=== PATIENT | female | born 1995 | race Caucasian/White ===

== ENCOUNTER 2016-04-04 22:26 | Emergency (ER) | payer OTHER ==
[2016-04-04 22:38] VITALS: BP 130/68; PULSE 86; TEMP 98.2; BMI 31.8
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
[2016-04-04 23:23] LABS: MCH 26.4 pg (25.7-33.7); MCHC 32.6 g/dl (32.0-36.0); MEAN CELL VOLUME 81.2 fl (80-96); MEAN PLT VOLUME 7.5 fl (7.5-11.1); PLATELET COUNT 279 K/MM3 (134-434); RDW 14.5 % (11.6-15.6)
[2016-04-05 00:35] LABS: URINE APPEARANCE CLEAR; URINE BILIRUBIN NEGATIVE (NEGATIVE); URINE BLOOD NEGATIVE (NEGATIVE); URINE COLOR STRAW; URINE GLUCOSE (UA) NEGATIVE (NEGATIVE); URINE KETONE NEGATIVE (NEGATIVE); URINE LEUK ESTERASE NEGATIVE (NEGATIVE); URINE NITRITE NEGATIVE (NEGATIVE); URINE PROTEIN NEGATIVE (NEGATIVE); URINE UROBILINOGEN NEGATIVE E.U./dl (0.2-1.0)
== END 2016-04-05 01:43 | disposition home or self-care (01) ==
LOC: JER 22:26
DX: O26.891 Other specified pregnancy related conditions, first trimester (principal); R10.84 Generalized abdominal pain; Y04.2XXA Assault by strike against or bumped into by another person, initial encounter; Y93.89 Activity, other specified; Y92.018 Other place in single-family (private) house as the place of occurrence of the external cause; Y07.411 Sister, perpetrator of maltreatment and neglect; Z3A.13 13 weeks gestation of pregnancy
CPT/HCPCS: 36415; 76801-TC; 81003; 84702; 85027; 86850; 86900; 86901; 99281-25

== ENCOUNTER 2016-07-02 22:27 | Emergency (ER) | payer OTHER ==
[2016-07-02 22:31] VITALS: BMI 38.0
--- NOTE | 2016-07-02 23:17 | PDOC ---
History of Present Illness - General History Source: Patient Exam Limitations: No Limitations - History of Present Illness Initial Comments: 07/02/16 23:50 The patient is a 21 year old approximately 27 weeks female(), with no significant past medical history, who presents to the emergency department complaining of abdominal cramping since earlier today. She reports she was at work when she began to experience her cramping. She states her cramps are different from her menstrual period or her uterine contractions, The patient reports associated nausea and one emetic episode. The patient denies any vaginal bleeding or discharge. She denies any dysuria, hematuria, frequency, or urgency. Patient reports she presented to the ED, because her symptoms are different from her previous . The patient reports her last child was born healthy, full-term, and delivered normally. The patient denies any fever, chills, or dizziness. The patient denies any diarrhea or constipation. Allergies: None reported. Past Surgical History: None reported. Social History: Former smoker. Denies alcohol or drug use. PCP: Dr. Yuan CAPITAL PROJECT ENGINEER: Dr. Ramírez <Collin Darling - Last Filed: 07/02/16 23:50> - General History Source: Patient Exam Limitations: No Limitations <Cyril Key - Last Filed: 07/02/16 23:55> - General Chief Complaint: Labor Assessment Stated Complaint: LABOR ASSESSMENT Time Seen by Provider: 07/02/16 23:09 Past History <Collin Darling - Last Filed: 07/02/16 23:50> - Past Medical History Other medical history: denies - Psycho/Social/Smoking Cessation Hx Anxiety: No Suicidal Ideation: No Smoking Status: Yes Smoking History: Former smoker Have you smoked in the past 12 months: Yes Number of Cigarettes Smoked Daily: 10 Information on smoking cessation initiated: No Hx Alcohol Use: No Drug/Substance Use Hx: No <Cyril Key - Last Filed: 07/02/16 23:55> - Past Medical History Allergies/Adverse Reactions: Allergies Allergy/AdvReac Type Severity Reaction Status Date / Time No Known Allergies Allergy Verified 07/02/16 22:28 Home Medications: Ambulatory Orders NK [No Known Home Medication] 04/04/16 Review of Systems - Review of Systems Able to Perform ROS?: Yes Comments:: 07/02/16 23:50 GENERAL/CONSTITUTIONAL: No fever or chills. No weakness. HEAD, EYES, EARS, NOSE AND THROAT: No change in vision. No ear pain or discharge. No sore throat. CARDIOVASCULAR: No chest pain or shortness of breath. RESPIRATORY: No cough, wheezing, or hemoptysis. GASTROINTESTINAL: Yes: +abdominal pain, +nausea, +vomiting. No diarrhea or constipation. GENITOURINARY: No dysuria, frequency, or change in urination. MUSCULOSKELETAL: No joint or muscle swelling or pain. No neck or back pain. SKIN: No rash NEUROLOGIC: No headache, vertigo, loss of consciousness, or change in strength/ sensation. ENDOCRINE: No increased thirst. No abnormal weight change. HEMATOLOGIC/LYMPHATIC: No anemia, easy bleeding, or history of blood clots. ALLERGIC/IMMUNOLOGIC: No hives or skin allergy. <Collin Darling - Last Filed: 07/02/16 23:50> *Physical Exam - Vital Signs Last Vital Signs Temp Pulse Resp BP Pulse Ox 98.3 F 98 H 18 148/79 99 07/02/16 22:29 07/02/16 22:29 07/02/16 22:29 07/02/16 22:29 07/02/16 22:29 - Physical Exam Comments: 07/02/16 23:51 GENERAL: Awake, alert, and fully oriented, in no acute distress HEAD: No signs of trauma EYES: PERRLA, EOMI, sclera anicteric, conjunctiva clear ENT: Auricles normal inspection, hearing grossly normal, nares patent, oropharynx clear without exudates. Moist mucosa NECK: Normal ROM, supple, no lymphadenopathy, JVD, or masses LUNGS: Breath sounds equal, clear to auscultation bilaterally. No wheezes, and no crackles HEART: Regular rate and rhythm, normal S1 and S2, no murmurs, rubs or gallops ABDOMEN: +Gravid. Soft, nontender, normoactive bowel sounds. No guarding, no rebound. No masses EXTREMITIES: Normal range of motion, no edema. No clubbing or cyanosis. No cords, erythema, or tenderness NEUROLOGICAL: Cranial nerves II through XII grossly intact. Normal speech, normal gait SKIN: Warm, Dry, normal turgor, no rashes or lesions noted. <Collin Darling - Last Filed: 07/02/16 23:50> - Vital Signs Last Vital Signs Temp Pulse Resp BP Pulse Ox 98.3 F 98 H 18 148/79 99 07/02/16 22:29 07/02/16 22:29 07/02/16 22:29 07/02/16 22:29 07/02/16 22:29 <Cyril Key - Last Filed: 07/02/16 23:55> ED Treatment Course - LABORATORY CBC & Chemistry Diagram: 07/02/16 23:15 07/02/16 23:15 - ADDITIONAL ORDERS Additional order review: Laboratory Results 07/02/16 07/02/16 23:20 23:15 Sodium 139 Potassium 3.6 Chloride 105 Carbon Dioxide 22 Anion Gap 12 BUN 8 Creatinine 0.5 L Creat Clearance w eGFR > 60 Random Glucose 82 Calcium 8.9 Total Bilirubin 0.2 AST 10 L ALT 20 Alkaline Phosphatase 75 Total Protein 6.6 Albumin 3.1 L Urine Color Colorless Urine Appearance Clear Urine pH 7.0 Ur Specific [place] 1.003 Urine Protein Negative Urine Glucose (UA) Negative Urine Ketones Negative Urine Blood 1+ H Urine Nitrite Negative Urine Bilirubin Negative Urine Urobilinogen Negative Ur Leukocyte Esterase Negative Urine RBC <1 Urine WBC 1 Ur Epithelial Cells Rare 07/02/16 23:15 RBC 4.25 MCV 81.6 MCHC 33.6 RDW 14.6 MPV 7.7 Neutrophils % 71.4 Lymphocytes % 21.0 Monocytes % 4.7 Eosinophils % 2.3 Basophils % 0.6 <Collin Darling - Last Filed: 07/02/16 23:50> - LABORATORY CBC & Chemistry Diagram: 07/02/16 23:15 07/02/16 23:15 <Cyril Key - Last Filed: 07/02/16 23:55> Medical Decision Making - Medical Decision Making 07/02/16 23:16 A portion of this note was documented by scribe services under my direction. I have reviewed the details of the note, within reason, and agree with the documentation with the following case summary and management plan written by me. Patient treated in the ED. Nursing notes are reviewed and incorporated into the medical decision-making. Vital signs reviewed. Peripheral IV access obtained by the nurse, laboratory studies are drawn and sent, reviewed and interpreted by myself. Vital Signs Temp Pulse Resp BP Pulse Ox 98.3 F 98 H 18 148/79 99 07/02/16 22:29 07/02/16 22:29 07/02/16 22:29 07/02/16 22:29 07/02/16 22:29 21-year-old female with no past medical history, 001, approximately 27 weeks presents with abdominal cramping since today. Patient reported some nausea and vomiting and some abdominal cramping. Denies vaginal bleeding or dysuria. 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 She denies symptoms now. At this time, patient has no abdominal tenderness or vaginal bleeding. We'll draw basic labs. If workup is unremarkable, patient can be discharged to labor and delivery for heart monitoring. 07/02/16 23:53 CBC, BMP 07/02/16 23:15 07/02/16 23:15 CMP Sodium 139 mmol/L (136-145) 07/02/16 23:15 Potassium 3.6 mmol/L (3.5-5.1) 07/02/16 23:15 Chloride 105 mmol/L (98-107) 07/02/16 23:15 Carbon Dioxide 22 mmol/L (21-32) 07/02/16 23:15 Anion Gap 12 (8-16) 07/02/16 23:15 BUN 8 mg/dL (7-18) 07/02/16 23:15 Creatinine 0.5 mg/dL (0.55-1.02) L 07/02/16 23:15 Creat Clearance w eGFR > 60 (>60) 07/02/16 23:15 Random Glucose 82 mg/dL (74-106) 07/02/16 23:15 Calcium 8.9 mg/dL (8.5-10.1) 07/02/16 23:15 Total Bilirubin 0.2 mg/dL (0.2-1.0) 07/02/16 23:15 AST 10 U/L (15-37) L 07/02/16 23:15 ALT 20 U/L (12-78) 07/02/16 23:15 Alkaline Phosphatase 75 U/L (45-117) 07/02/16 23:15 Total Protein 6.6 g/dl (6.4-8.2) 07/02/16 23:15 Albumin 3.1 g/dl (3.4-5.0) L 07/02/16 23:15 It appears that even in March, the patient had WBC ~17. This is stable and unchanged. The patient reports feeling asymptomatic and well. Will send patient to L&D for FH monitoring. Case discussed with L&D RN Julieth who accepts patient to L&D. Patient is cleared from the ED's perspective. <Cyril Key - Last Filed: 07/02/16 23:55> *DC/Admit/Observation/Transfer - Attestations Scribe Attestion: 07/02/16 23:51 Documentation prepared by Collin Darling, acting as medical sales specialist for Cyril Key MD. <Collin Darling - Last Filed: 07/02/16 23:50> - Discharge Dispostion Admit: No <Cyril Key - Last Filed: 07/02/16 23:55> Diagnosis at time of Disposition: Abdominal cramping - Discharge Dispostion Disposition: HOME Condition at time of disposition: Good - Referrals Referrals: Uriel Yuan MD [Primary Care Provider] - - Patient Instructions Additional Instructions: You are cleared from the ER to go to labor and delivery.
[2016-07-02 23:24] LABS: BASOPHIL 0.6 % (0-2.0); EOSINOPHIL 2.3 % (0-4.5); MCH 27.4 pg (25.7-33.7); MCHC 33.6 g/dl (32.0-36.0); MEAN CELL VOLUME 81.6 fl (80-96); MEAN PLT VOLUME 7.7 fl (7.5-11.1); NEUTROPHILS 71.4 % (42.8-82.8); PLATELET COUNT 259 K/MM3 (134-434); RDW 14.6 % (11.6-15.6)
[2016-07-02 23:32] LABS: URINE APPEARANCE CLEAR; URINE BILIRUBIN NEGATIVE (NEGATIVE); URINE BLOOD 1+ (NEGATIVE); URINE COLOR COLORLESS; URINE GLUCOSE (UA) NEGATIVE (NEGATIVE); URINE KETONE NEGATIVE (NEGATIVE); URINE LEUK ESTERASE NEGATIVE (NEGATIVE); URINE NITRITE NEGATIVE (NEGATIVE); URINE PROTEIN NEGATIVE (NEGATIVE); URINE UROBILINOGEN NEGATIVE E.U./dl (0.2-1.0)
[2016-07-02 23:33] LABS: URINE RBC <1 /hpf (0-3); URINE WBC 1 /hpf (3-5)
[2016-07-02 23:48] LABS: ALBUMIN 3.1 g/dl (3.4-5.0); ALK PHOS 75 U/L (45-117); ANION GAP 12 (8-16); BILIRUBIN,TOTAL 0.2 mg/dL (0.2-1.0); CALCIUM 8.9 mg/dL (8.5-10.1); CO2 22 mmol/L (21-32); CREATININE 0.5 mg/dL (0.55-1.02); GLUCOSE,RANDOM 82 mg/dL (74-106); SGOT/AST 10 U/L (15-37); SGPT/ALT 20 U/L (12-78); TOT PROT 6.6 g/dl (6.4-8.2)
[2016-07-03] MEDS ORDERED: METOCLOPRAMIDE HCL 10 MG TABLET (FP) PO ONE ×2 (00:33→00:36)
[2016-07-03 01:48] VITALS: BP 129/61; PULSE 84; TEMP 98.1
== END 2016-07-03 01:49 | disposition home or self-care (01) ==
LOC: JER 22:27
DX: O26.892 Other specified pregnancy related conditions, second trimester (principal); R10.9 Unspecified abdominal pain; Z3A.27 27 weeks gestation of pregnancy; Z87.891 Personal history of nicotine dependence
CPT/HCPCS: 36415; 80053; 81003; 81015; 85025; 99282-25

== ENCOUNTER 2016-10-03 08:26 | Emergency (ER) | payer OTHER ==
[2016-10-03 08:39] VITALS: PULSE 87; TEMP 98.5; BMI 35.4
--- NOTE | 2016-10-03 09:06 | PDOC ---
Attending Attestation - Resident Resident Name: Marycarmen Hamm - HPI HPI: 10/03/16 09:57 Pt presents to the ED complaining of a two day history of diffuse frontal headache. Recently post . Denies visual complaints. - Physicial Exam PE: 10/03/16 10:09 Agree with above exam. Patient is well appearing. - Medical Decision Making 10/03/16 10:12 Pt presents to the ED complaining of diffuse frontal headache. Improved in the ED After toradol. No signs of pre-ecclampsia. No concern for subarachnoid. Will discharge home with pain control.
[2016-10-03] MEDS ORDERED: KETOROLAC TROMETHAMINE 60 MG/2 ML VIAL IM ONE (09:12)
--- NOTE | 2016-10-03 09:17 | PDOC ---
History of Present Illness - General Chief Complaint: Headache Stated Complaint: BACK PAIN, DIZZINESS Time Seen by Provider: 10/03/16 08:47 History Source: Patient Exam Limitations: No Limitations - History of Present Illness Initial Comments: 10/03/16 09:17 CC: 2 day h/o headache Patient is a 21 y.o. female with no significant PMH and recent (09/28) childbirth who presents today with a 2 day h/o throbbing, 10/10 constant headache that started yesterday morning. Patient states she took some Tylenol yesterday which relieved her headache (6/10) however her headache returned yesterday evening and she was also nauseous, however she did not vomit. Patient denies any fever, vision changes, dizziness, or that this is the worst headache of her life. Timing/Duration: other (48 hours) Modifying Factors: improves with: medication Associated Symptoms: reports: nausea/vomiting (Intermittent nausea) Past History - Past Medical History Allergies/Adverse Reactions: Allergies Allergy/AdvReac Type Severity Reaction Status Date / Time No Known Allergies Allergy Verified 10/03/16 08:39 Home Medications: Ambulatory Orders Ibuprofen [Motrin -] 600 mg PO TID #9 tablet 10/03/16 Other medical history: PATIENT DENIES MEDICAL HX - Immunization History Immunization Up to Date: Yes - Psycho/Social/Smoking Cessation Hx Anxiety: No Suicidal Ideation: No Smoking Status: Yes Smoking History: Current every day smoker Have you smoked in the past 12 months: Yes Number of Cigarettes Smoked Daily: 5 Information on smoking cessation initiated: No Hx Alcohol Use: No Drug/Substance Use Hx: No Review of Systems - Review of Systems Constitutional: Yes: Other (No fever, chills, malaise, unintentional weight loss ) HEENTM: Yes: Other (No visual changes, hearing loss, tinnitus or sore throat) Respiratory: Yes: Other (No cough, shortness of breath, wheezing or hemoptysis) Cardiac (ROS): Yes: Other (No chest pain, palpitation, edema, lightheadedness) ABD/GI: Yes: Other ((+) nausea, no vomiting, no constipation, no diarrhea) : Yes: Other (no dysuria, increased frequency, increased urgency, (+) post vaginal discharge) Musculoskeletal: Yes: Other (No neck stiffness, joint pain, muscle pain, muscle weakness) Neurological: Yes: Other ((+) frontal "throbbing" headache 12/27; no numbness, no tingling, no ataxia) Psychiatric: Yes: Other (no anxiety, depression, suicidal or homicidal ideation) All Other Systems: Reviewed and Negative *Physical Exam - Vital Signs Last Vital Signs Temp Pulse Resp BP Pulse Ox 98.5 F 87 18 139/84 98 10/03/16 08:35 10/03/16 08:35 10/03/16 08:35 10/03/16 08:35 10/03/16 08:35 - Physical Exam General Appearance: Yes: Nourished, Appropriately Dressed HEENT: positive: EOMI, GUERO Neck: positive: Trachea midline, Supple Respiratory/Chest: positive: Lungs Clear, Normal Breath Sounds Cardiovascular: positive: Regular Rhythm, Regular Rate, S1, S2 Gastrointestinal/Abdominal: positive: Tender, Soft Musculoskeletal: positive: Normal Inspection Integumentary: positive: Normal Color, Dry, Warm Neurologic: positive: c consultant II-XII NML intact, Fully Oriented, Alert, Other ( Normal cerebellar testing) Medical Decision Making - Medical Decision Making 10/03/16 09:32 Patient is a 21 y.o. female with no significant PMH recent (09/28) vaginal who presents today c/o 2 day h/o headache. As patient had an epidural with her recent delivery suspicion for post epidural headache. Patient's initial BP Patient does have a h/o migraines, however, patient's migraines usually present acutely and increase in severity and are often relieved by OTC medications thus migraine is less likely diagnosis. PLAN 1. IV Toradol while in ED 2. NSAIDs for at home relief 3. Patient to return to ED should she experience any fever, increasing severity of headache, confusion or vomiting 10/03/16 10:27 *DC/Admit/Observation/Transfer Diagnosis at time of Disposition: Headache - Discharge Dispostion Disposition: HOME Condition at time of disposition: Improved - Prescriptions Prescriptions: Ibuprofen [Motrin -] 600 mg PO TID #9 tablet - Referrals Referrals: Uriel Yuan MD [Primary Care Provider] - - Attestations Physician Attestion: 10/03/16 10:15 I, Dr. Marycarmen Hamm, attest that this document has been prepared under my direction and personally reviewed by me in its entirety. I further attest, that it accurately reflects all work, treatment, procedures and medical decision -making performed by me.
[2016-10-03] MEDS ORDERED: KETOROLAC TROMETHAMINE 60 MG/2 ML VIAL ONE (09:28)
[2016-10-03 10:32] VITALS: BP 110/78
== END 2016-10-03 10:32 | disposition home or self-care (01) ==
LOC: JER 08:26
PROC: 3E0233Z Introduction of Anti-inflammatory into Muscle, Percutaneous Approach (ICD-10-PCS; principal; 2016-10-03)
DX: O99.89 Other specified diseases and conditions complicating pregnancy, childbirth and the puerperium (principal); R51 Headache
CPT/HCPCS: 96372; 99282-25

== ENCOUNTER 2017-02-27 23:30 | Emergency (ER) | payer OTHER ==
[2017-02-27 23:49] VITALS: BP 120/75; PULSE 94; TEMP 99.7; BMI 35.4
--- NOTE | 2017-02-28 00:46 | PDOC ---
History of Present Illness - General Chief Complaint: Respiratory Stated Complaint: CONGESTION Time Seen by Provider: 02/27/17 23:54 History Source: Patient Exam Limitations: No Limitations - History of Present Illness Initial Comments: 02/28/17 00:46 21-year-old female with no medical history presents to the emergency department complaining of nasal congestion times approximately 5 days without fever, chills , nausea/vomiting/diarrhea, cough, rhinorrhea, sore throat, neck pains/stiffness , back pains, chest pain, shortness of breath, abdominal pains, flank pains, urinary symptoms. Patient states when she takes [id number] supportive care , she feels better. Timing/Duration: reports: yesterday Past History - Past Medical History Allergies/Adverse Reactions: Allergies Allergy/AdvReac Type Severity Reaction Status Date / Time No Known Allergies Allergy Verified 02/27/17 23:49 Home Medications: Ambulatory Orders NK [No Known Home Medication] 02/27/17 COPD: No - Immunization History Immunization Up to Date: Yes - Suicide/Smoking/Psychosocial Hx Smoking Status: Yes Smoking History: Current every day smoker Have you smoked in the past 12 months: Yes Number of Cigarettes Smoked Daily: 7 Information on smoking cessation initiated: No Hx Alcohol Use: No Drug/Substance Use Hx: No Review of Systems - Review of Systems Able to Perform ROS?: Yes Comments:: 02/28/17 00:45 CONSTITUTIONAL: Absent: fever, chills, diaphoresis, generalized weakness, malaise, loss of appetite HEENT: +nasal congrestion Absent: rhinorrhea, throat pain, throat swelling, difficulty swallowing, mouth swelling, ear pain, eye pain, visual Changes CARDIOVASCULAR: Absent: chest pain, loss of consciousness, palpitations, irregular heart rate, peripheral edema RESPIRATORY: Absent: cough, shortness of breath, dyspnea with exertion, orthopnea, wheezing, stridor, hemoptysis GASTROINTESTINAL: Absent: abdominal pain, abdominal distension, nausea, vomiting, diarrhea, constipation, melena, hematochezia GENITOURINARY: Absent: dysuria, frequency, urgency, hesitancy, hematuria, flank pain, genital pain MUSCULOSKELETAL: Absent: myalgia, arthralgia, joint swelling SKIN: Absent: rash, itching, pallor HEMATOLOGIC/IMMUNOLOGIC: Absent: easy bleeding, easy bruising, lymphadenopathy, frequent infections ENDOCRINE: Absent: unexplained weight gain, unexplained weight loss, heat intolerance, cold intolerance NEUROLOGIC: Absent: headache, focal weakness or paresthesias, dizziness, unsteady gait, seizure, mental status changes, bladder or bowel incontinence PSYCHIATRIC: Absent: anxiety, depression, suicidal or homicidal ideation, hallucinations. Is the patient limited Y[place]ut proficient: No *Physical Exam - Vital Signs Last Vital Signs Temp Pulse Resp BP Pulse Ox 99.7 F H 94 H 18 120/75 99 02/27/17 23:47 02/27/17 23:47 02/27/17 23:47 02/27/17 23:47 02/27/17 23:47 - Physical Exam Comments: 02/28/17 00:45 GENERAL: Well developed, well nourished. Awake and alert. No acute distress. HEENT: Normocephalic, atraumatic. PERRLA, EOMI. No conjunctival pallor. Sclera are non- icteric. Moist mucous membranes. Oropharynx is clear. NECK: Supple. Full ROM. No JVD. Carotid pulses 2+ and symmetric, without bruits. No thyromegaly. No lymphadenopathy. CARDIOVASCULAR: Regular rate and rhythm. No murmurs, rubs, or gallops. Distal pulses are 2+ and symmetric. PULMONARY: No evidence of respiratory distress. Lungs clear to auscultation bilaterally. No wheezing, rales or rhonchi. ABDOMINAL: Soft. Non-tender. Non-distended. No rebound or guarding. No organomegaly. Normoactive bowel sounds. MUSCULOSKELETAL Normal range of motion at all joints. No bony deformities or tenderness. No CVA tenderness. EXTREMITIES: No cyanosis. No clubbing. No edema. No calf tenderness. SKIN: Warm and dry. Normal capillary refill. No rashes. No jaundice. NEUROLOGICAL: Alert, awake, appropriate. Cranial nerves 2-12 intact. No deficits to light touch and temperature in face, upper extremities and lower extremities. No motor deficits in the in face, upper extremities and lower extremities. Normoreflexic in the upper and lower extremities. Normal speech. Toes are down- going bilaterally. Gait is normal without ataxia. PSYCHIATRIC: Cooperative. Good eye contact. Appropriate mood and affect. *DC/Admit/Observation/Transfer Diagnosis at time of Disposition: Viral syndrome - Discharge Dispostion Disposition: HOME Condition at time of disposition: Stable Admit: No - Referrals Referrals: Uriel Yuan MD [Primary Care Provider] - - Patient Instructions Printed Discharge Instructions: DI for Viral Syndrome Additional Instructions: Rest Increase fluids Over the counter/supportive care Return to the ER for severe/persistent/worsening symptoms Follow up with your physician in 48 hours - Post Discharge Activity
== END 2017-02-28 00:48 | disposition home or self-care (01) ==
LOC: JERFT 23:30
DX: B34.9 Viral infection, unspecified (principal); F17.210 Nicotine dependence, cigarettes, uncomplicated
CPT/HCPCS: 99281-25

== ENCOUNTER 2017-03-20 05:37 | Emergency (ER) | payer OTHER ==
[2017-03-20 05:59] VITALS: TEMP 98.9; BMI 37.8
[2017-03-20] MEDS ORDERED: ONDANSETRON 4 MG/2 ML VIAL IVPUSH ONE ×2 (06:14→10:14)
[2017-03-20] MEDS ORDERED: SODIUM CHLORIDE 1,000 ML IV STA (06:14)
[2017-03-20] MEDS ORDERED: ONDANSETRON 4 MG/2 ML VIAL ONE ×2 (06:15→11:44)
[2017-03-20 06:48] LABS: BASO % 0.3 % (0-2.0); EOS % 2.6 % (0-4.5); HEMATOCRIT 42.3 % (32.4-45.2); HEMOGLOBIN 13.9 GM/dL (10.7-15.3); LYMPH % 6.7 % (8-40); MCH 26.5 pg (25.7-33.7); MCHC 32.7 g/dl (32.0-36.0); MEAN CELL VOLUME 80.8 fl (80-96); MEAN PLT VOLUME 8.2 fl (7.5-11.1); MONO % 6.1 % (3.8-10.2); NEUT % 84.3 % (42.8-82.8); PLATELET COUNT 296 K/MM3 (134-434); RBC 5.24 M/mm3 (3.60-5.2); RDW 14.7 % (11.6-15.6); WHITE BLOOD COUNT 16.9 K/mm3 (4.0-10.0)
[2017-03-20] MEDS ORDERED: morphine CARPU-JECT 4 MG/1 ML DISP.SYRIN IVPUSH ONE ×2 (07:31→09:31)
[2017-03-20] MEDS ORDERED: MAG HYDROX/AL HYDROX/SIMETH 355 ML ORAL.SUSP PO ONE (07:33)
[2017-03-20 07:37] LABS: ALBUMIN 3.8 g/dl (3.4-5.0); ANION GAP 9 (8-16); BILIRUBIN,TOTAL 0.8 mg/dL (0.2-1.0); BLOOD UREA NITROGEN 17 mg/dL (7-18); CALCIUM 8.3 mg/dL (8.5-10.1); CHLORIDE 106 mmol/L (98-107); CO2 23 mmol/L (21-32); CREATININE 0.9 mg/dL (0.55-1.02); GLUCOSE,RANDOM 106 mg/dL (74-106); SGOT/AST 11 U/L (15-37); SODIUM 138 mmol/L (136-145); TOT PROT 7.5 g/dl (6.4-8.2)
--- NOTE | 2017-03-20 07:38 | PDOC ---
History of Present Illness - General Chief Complaint: Pain, Acute Stated Complaint: ABD PAIN Time Seen by Provider: 03/20/17 07:19 History Source: Patient - History of Present Illness Timing/Duration: reports: getting worse Pain Radiation: reports: epigastric Past History - Past Medical History Allergies/Adverse Reactions: Allergies Allergy/AdvReac Type Severity Reaction Status Date / Time No Known Allergies Allergy Verified 03/20/17 05:57 Home Medications: Ambulatory Orders Acetaminophen [Tylenol] 650 mg PO Q6H #30 tablet 03/20/17 Ondansetron HCl [Zofran] 4 mg PO Q8H #15 tablet 03/20/17 COPD: No - Immunization History Immunization Up to Date: Yes - Suicide/Smoking/Psychosocial Hx Smoking Status: Yes Smoking History: Never smoked Have you smoked in the past 12 months: No Number of Cigarettes Smoked Daily: 7 Information on smoking cessation initiated: No Hx Alcohol Use: No Drug/Substance Use Hx: No Review of Systems - Review of Systems Constitutional: No: Chills, Fever Respiratory: No: Shortness of Breath Cardiac (ROS): No: Chest Pain ABD/GI: Yes: Nausea, Vomiting, Abdominal cramping. No: Blood Streaked Bowels, Constipated, Diarrhea : No: Dysuria, Discharge, Hematuria *Physical Exam - Vital Signs Last Vital Signs Temp Pulse Resp BP Pulse Ox 98.9 F 88 20 111/67 98 03/20/17 05:57 03/20/17 05:57 03/20/17 05:57 03/20/17 05:57 03/20/17 05:57 - Physical Exam General Appearance: Yes: Appropriately Dressed, Mild Distress HEENT: positive: Normal Voice. negative: Scleral Icterus (R), Scleral Icterus ( L) Respiratory/Chest: negative: Respiratory Distress Gastrointestinal/Abdominal: positive: Tender (poorly localized), Soft, Other ( neg murpheys). negative: Distended, Guarding, Rebound Musculoskeletal: negative: CVA Tenderness Integumentary: positive: Dry, Warm Neurologic: positive: Fully Oriented, Alert, Normal Mood/Affect ED Treatment Course - LABORATORY CBC & Chemistry Diagram: 03/20/17 06:25 03/20/17 06:25 - ADDITIONAL ORDERS Additional order review: 03/20/17 06:25 RBC 5.24 H D MCV 80.8 MCHC 32.7 RDW 14.7 MPV 8.2 Neutrophils % 84.3 H Lymphocytes % 6.7 L D Monocytes % 6.1 Eosinophils % 2.6 Basophils % 0.3 - RADIOLOGY Radiology Studies Ordered: Category Date Time Status ABDOMEN & PELVIS CT WITH CONTR [CT] Stat CT Scan 03/20/17 07:32 Ordered - Medications Given in the ED: ED Medications Discontinued Medications Generic Name Dose Route Start Last Admin Trade Name Chris PRN Reason Stop Dose Admin Sodium Chloride 1,000 mls @ 1,000 mls/hr 03/20/17 06:14 03/20/17 06:30 Normal Saline - IV 03/20/17 07:13 1,000 mls/hr ASDIR STA Administration Ondansetron HCl 4 mg 03/20/17 06:14 03/20/17 06:30 Zofran Injection IVPUSH 03/20/17 06:15 4 mg ONCE ONE Administration Medical Decision Making - Medical Decision Making 03/20/17 07:33 21-year-old morbidly obese female, denies any past medical history, here with upper abdominal pain with nausea, vomiting that started at 2 AM today. States pain 10 out of 10 and describes it as "feeling like I ate too much" as per patient. States she had approximately 15 episodes of "yellowish" vomitus. Denies hematemesis, change in bowel movements, fever, chills, dysuria, hematuria or vaginal discharge. Denies unusual food or sick contacts. No history of similar pain. Denies history of gallstones or kidney stones See exam Upper abd pain w/ n/v R/o preg vs gastritis vs reji vs appy, less likely renal stone or uti -pain control -zofran -IVF -labs -? CT 03/20/17 07:37 03/20/17 11:[address], otherwise no acute pathology. Leukocytosis m/l 2/2 n/v, no indication for antibiotics as per discussion with the ED attending. Patient improved with supportive treatment and tolerating po. Will dc with supportive treatment. Reasons to return discussed with patient *DC/Admit/Observation/Transfer Diagnosis at time of Disposition: Gastroenteritis - Discharge Dispostion Disposition: HOME Condition at time of disposition: Improved - Prescriptions Prescriptions: Acetaminophen [Tylenol] 650 mg PO Q6H #30 tablet Ondansetron HCl [Zofran] 4 mg PO Q8H #15 tablet - Referrals - Patient Instructions Printed Discharge Instructions: DI for Viral Gastroenteritis -- Adult Additional Instructions: Rest, maintain adequate hydration and take medication as prescribed. If symptoms worsen, return to ER - Post Discharge Activity
[2017-03-20 07:43] LABS: ALK PHOS 60 U/L (45-117); SGPT/ALT 25 U/L (12-78)
[2017-03-20] MEDS ORDERED: MAG HYDROX/AL HYDROX/SIMETH 30 ML UNIT-DOSE CUP ONE (08:23)
[2017-03-20] MEDS ORDERED: FAMOTIDINE 20 MG/50 ML IVPB 20 MG/50 ML MG IVPB ONE (08:30)
[2017-03-20] MEDS ORDERED: FAMOTIDINE IV 20 MG/12 ML VIAL IVPUSH ONE (08:30)
[2017-03-20 08:34] LABS: URINE APPEARANCE CLEAR; URINE BILIRUBIN NEGATIVE (NEGATIVE); URINE BLOOD NEGATIVE (NEGATIVE); URINE COLOR LTYELLOW; URINE GLUCOSE (UA) NEGATIVE (NEGATIVE); URINE KETONE NEGATIVE (NEGATIVE); URINE LEUK ESTERASE NEGATIVE (NEGATIVE); URINE NITRITE NEGATIVE (NEGATIVE); URINE PROTEIN NEGATIVE (NEGATIVE); URINE UROBILINOGEN NEGATIVE mg/dL (0.2-1.0)
[2017-03-20] MEDS ORDERED: morphine CARPU-JECT 10 MG/1 ML DISP.SYRIN ONE (09:37)
[2017-03-20] MEDS ORDERED: FAMOTIDINE IV 20 MG/12 ML VIAL IVPUSH SCH (10:00)
[2017-03-20 12:41] VITALS: BP 122/74; PULSE 79
--- NOTE | 2017-03-20 12:54 | PDOC ---
*Physical Exam - Vital Signs Last Vital Signs Temp Pulse Resp BP Pulse Ox 98.9 F 79 18 122/74 99 03/20/17 05:57 03/20/17 12:40 03/20/17 12:40 03/20/17 12:40 03/20/17 12:40 ED Treatment Course - LABORATORY CBC & Chemistry Diagram: 03/20/17 06:25 03/20/17 06:25 - ADDITIONAL ORDERS Additional order review: Laboratory Results 03/20/17 03/20/17 03/20/17 07:57 07:57 07:30 Sodium Potassium Chloride Carbon Dioxide Anion Gap BUN Creatinine Creat Clearance w eGFR Random Glucose Calcium Total Bilirubin AST ALT Alkaline Phosphatase Total Protein Albumin Lipase Serum , Qual Negative Urine Color Ltyellow Urine Appearance Clear Urine pH 7.0 Ur Specific [place] 1.013 Urine Protein Negative Urine Glucose (UA) Negative Urine Ketones Negative Urine Blood Negative Urine Nitrite Negative Urine Bilirubin Negative Urine Urobilinogen Negative Urine HCG, Qual Negative 03/20/17 03/20/17 06:25 06:25 Sodium 138 Potassium 4.0 Chloride 106 Carbon Dioxide 23 Anion Gap 9 BUN 17 D Creatinine 0.9 D Creat Clearance w eGFR > 60 Random Glucose 106 D Calcium 8.3 L Total Bilirubin 0.8 D AST 11 L ALT 25 D Alkaline Phosphatase 60 Total Protein 7.5 Albumin 3.8 D Lipase 129 Serum , Qual Urine Color Urine Appearance Urine pH Ur Specific [place] Urine Protein Urine Glucose (UA) Urine Ketones Urine Blood Urine Nitrite Urine Bilirubin Urine Urobilinogen Urine HCG, Qual 03/20/17 06:25 RBC 5.24 H D MCV 80.8 MCHC 32.7 RDW 14.7 MPV 8.2 Neutrophils % 84.3 H Lymphocytes % 6.7 L D Monocytes % 6.1 Eosinophils % 2.6 Basophils % 0.3 - RADIOLOGY Radiology Studies Ordered: Category Date Time Status ABDOMEN & PELVIS CT WITH CONTR [CT] Stat CT Scan 03/20/17 07:32 Completed - Medications Given in the ED: ED Medications Discontinued Medications Generic Name Dose Route Start Last Admin Trade Name Freq PRN Reason Stop Dose Admin Al Hydroxide/Mg Hydroxide 30 ml 03/20/17 07:33 03/20/17 08:25 Mylanta Suspension - PO 03/20/17 07:34 30 ml ONCE ONE Administration Sodium Chloride 1,000 mls @ 1,000 mls/hr 03/20/17 06:14 03/20/17 06:30 Normal Saline - IV 03/20/17 07:13 1,000 mls/hr ASDIR STA Administration Famotidine 20 mg in 12 mls @ 144 mls/hr 03/20/17 08:30 03/20/17 08:33 Pepcid 20 Mg/12 Ml Push IVPUSH 03/20/17 08:34 144 mls/hr NOW ONE Administration Morphine Sulfate 4 mg 03/20/17 07:31 03/20/17 07:41 Morphine Injection - IVPUSH 03/20/17 07:32 Not Given ONCE ONE Morphine Sulfate 4 mg 03/20/17 09:31 03/20/17 09:40 Morphine Injection - IVPUSH 03/20/17 09:32 4 mg ONCE ONE Administration Ondansetron HCl 4 mg 03/20/17 06:14 03/20/17 06:30 Zofran Injection IVPUSH 03/20/17 06:15 4 mg ONCE ONE Administration Ondansetron HCl 4 mg 03/20/17 10:14 03/20/17 10:23 Zofran Injection IVPUSH 03/20/17 10:15 4 mg ONCE ONE Administration *DC/Admit/Observation/Transfer Diagnosis at time of Disposition: Gastroenteritis - Discharge Dispostion Disposition: HOME Condition at time of disposition: Improved - Prescriptions Prescriptions: Acetaminophen [Tylenol] 650 mg PO Q6H #30 tablet Ondansetron HCl [Zofran] 4 mg PO Q8H #15 tablet - Referrals - Patient Instructions Printed Discharge Instructions: DI for Viral Gastroenteritis -- Adult Additional Instructions: Rest, maintain adequate hydration and take medication as prescribed. If symptoms worsen, return to ER - Post Discharge Activity
== END 2017-03-20 12:41 | disposition home or self-care (01) ==
LOC: JER 05:37
PROC: 3E033GC Introduction of Other Therapeutic Substance into Peripheral Vein, Percutaneous Approach (ICD-10-PCS; principal; 2017-03-20)
PROC: 3E033GC Introduction of Other Therapeutic Substance into Peripheral Vein, Percutaneous Approach (ICD-10-PCS; 2017-03-20)
PROC: 3E033GC Introduction of Other Therapeutic Substance into Peripheral Vein, Percutaneous Approach (ICD-10-PCS; 2017-03-20)
PROC: 3E033NZ Introduction of Analgesics, Hypnotics, Sedatives into Peripheral Vein, Percutaneous Approach (ICD-10-PCS; 2017-03-20)
PROC: 3E033NZ Introduction of Analgesics, Hypnotics, Sedatives into Peripheral Vein, Percutaneous Approach (ICD-10-PCS; 2017-03-20)
DX: K52.9 Noninfective gastroenteritis and colitis, unspecified (principal)
CPT/HCPCS: 36415; 74177-TC; 80053; 81003; 83690; 84703; 85025; 87086; 96374; 96375; 99284-25

== ENCOUNTER 2018-06-18 18:37 | Observation (INO) | payer OTHER ==
[2018-06-18 18:54] VITALS: BMI 34.5
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
[2018-06-18] MEDS ORDERED: SODIUM CHLORIDE 0.9% 500 ML INFUS.BAG IV ONE (20:27)
[2018-06-18] MEDS ORDERED: SODIUM CHLORIDE 1,000 ML IV STA (20:28)
[2018-06-18] MEDS ORDERED: ONDANSETRON 4 MG/2 ML VIAL IVPUSH ONE (20:28)
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
[2018-06-18 21:06] LABS: BASO % 0.6 % (0-2.0); EOS % 1.3 % (0-4.5); HEMATOCRIT 38.9 % (32.4-45.2); HEMOGLOBIN 13.1 GM/dL (10.7-15.3); LYMPH % 5.2 % (8-40); MCH 27.9 pg (25.7-33.7); MCHC 33.7 g/dl (32.0-36.0); MEAN CELL VOLUME 82.7 fl (80-96); MEAN PLT VOLUME 8.2 fl (7.5-11.1); MONO % 2.3 % (3.8-10.2); NEUT % 90.6 % (42.8-82.8); PLATELET COUNT 238 K/MM3 (134-434); RDW 14.6 % (11.6-15.6); WHITE BLOOD COUNT 9.5 K/mm3 (4.0-10.0)
[2018-06-18 21:17] LABS: INR 1.07 (0.83-1.09); PROTHROMBIN TIME (PATIENT) 12.6 SEC (9.7-13.0)
[2018-06-18 21:22] LABS: ALBUMIN 3.7 g/dl (3.4-5.0); ALK PHOS 60 U/L (45-117); ANION GAP 9 MMOL/L (8-16); BILIRUBIN,TOTAL 0.8 mg/dL (0.2-1); BLOOD UREA NITROGEN 13 mg/dL (7-18); CALCIUM 8.3 mg/dL (8.5-10.1); CHLORIDE 108 mmol/L (98-107); CO2 22 mmol/L (21-32); CREATININE 0.7 mg/dL (0.55-1.3); GLUCOSE,RANDOM 99 mg/dL (74-106); SGOT/AST 23 U/L (15-37); SGPT/ALT 33 U/L (13-61); SODIUM 138 mmol/L (136-145); TOT PROT 6.7 g/dl (6.4-8.2)
[2018-06-18] MEDS ORDERED: ONDANSETRON 4 MG/2 ML VIAL ONE (21:53)
[2018-06-18 22:41] LABS: PH,URINE 5.5 (5.0-8.0); URINE APPEARANCE Clear; URINE BILIRUBIN Negative (NEGATIVE); URINE COLOR Yellow; URINE GLUCOSE (UA) Negative (NEGATIVE); URINE KETONE Negative (NEGATIVE); URINE LEUK ESTERASE Negative (NEGATIVE); URINE NITRITE Negative (NEGATIVE); URINE PROTEIN Negative (NEGATIVE); URINE UROBILINOGEN 0.2 mg/dL (0.2-1.0)
[2018-06-19] MEDS ORDERED: ACETAMINOPHEN 1000 MG/100 ML VIAL (NON FORMULARY) IVPB ONE (00:54)
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
[2018-06-19] MEDS ORDERED: ACETAMINOPHEN INJECTION 100 ML IVPB ONE (01:42)
[2018-06-19] MEDS ORDERED: ARTIFICIAL TEARS (POLYVINYL ALCOHOL) OPTH DROPS OU ONE (01:53)
[2018-06-19] MEDS ORDERED: ONDANSETRON 4 MG/2 ML VIAL IVPUSH PRN (01:55)
[2018-06-19] MEDS ORDERED: DEXTROSE 5%-0.45% SALINE 1,000 ML IV SCH (02:00)
[2018-06-19] MEDS ORDERED: ONDANSETRON 4 MG/2 ML VIAL ONE (02:19)
[2018-06-19 02:30] LABS: COCAINE, UR NEGATIVE ng/ml (CUTOFF=300); METHADONE, UR NEGATIVE ng/ml (CUTOFF=300); OPIATES, URI NEGATIVE ng/ml (CUTOFF=300); PHENCYCLIDINE,URINE NEGATIVE ng/ml (CUTOFF=25); URINE AMPHETAMINES NEGATIVE ng/ml (CUTOFF=500); URINE BARBITURATES NEGATIVE ng/ml (CUTOFF=200); URINE BENZODIAZEPINES NEGATIVE ng/ml (CUTOFF=200)
[2018-06-19 06:28] LABS: BASO % 0.5 % (0-2.0); EOS % 1.6 % (0-4.5); HEMATOCRIT 36.9 % (32.4-45.2); HEMOGLOBIN 12.1 GM/dL (10.7-15.3); LYMPH % 23.7 % (8-40); MCH 27.3 pg (25.7-33.7); MCHC 32.9 g/dl (32.0-36.0); MONO % 5.3 % (3.8-10.2); NEUT % 68.9 % (42.8-82.8); PLATELET COUNT 214 K/MM3 (134-434); RBC 4.44 M/mm3 (3.60-5.2); RDW 14.4 % (11.6-15.6)
[2018-06-19 07:06] LABS: ANION GAP 6 MMOL/L (8-16); BLOOD UREA NITROGEN 8 mg/dL (7-18); CALCIUM 7.1 mg/dL (8.5-10.1); CHLORIDE 110 mmol/L (98-107); CO2 23 mmol/L (21-32); CREATININE 0.5 mg/dL (0.55-1.3); GLUCOSE,RANDOM 86 mg/dL (74-106); MAGNESIUM 1.7 mg/dL (1.8-2.4); PHOSPHOROUS 2.4 mg/dL (2.5-4.9); POTASSIUM 3.3 mmol/L (3.5-5.1); SODIUM 139 mmol/L (136-145)
[2018-06-19] MEDS ORDERED: ACETAMINOPHEN 325 MG TABLET (FP) PO PRN (09:16)
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
[2018-06-19] MEDS ORDERED: ACETAMINOPHEN 325 MG TABLET (FP) ONE (09:57)
[2018-06-19] MEDS ORDERED: SUMATRIPTAN SUCCINATE 6 MG/0.5 ML VIAL SQ ONE (12:45)
[2018-06-19] MEDS ORDERED: SUMATRIPTAN SUCCINATE 6 MG/0.5 ML VIAL ONE (13:52)
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
--- NOTE | 2018-06-19 14:42 | EKG ---
Test Reason : Blood Pressure : / mmHG Vent. Rate : 107 BPM Atrial Rate : 107 BPM P-R Int : 138 ms QRS Dur : 078 ms QT Int : 330 ms P-R-T Axes : 061 057 034 degrees QTc Int : 440 ms SINUS TACHYCARDIA POSSIBLE LEFT ATRIAL ENLARGEMENT BORDERLINE ECG WHEN COMPARED WITH ECG OF 12-JUN-2017 06:06, VENT. RATE HAS INCREASED BY 36 BPM Confirmed by Dg Kay ([id number]) on 06/19/2018 2:42:08 PM Referred By: Confirmed By:Dg Kay
[2018-06-19] MEDS ORDERED: SUMAtriptan SUCCINATE 50 MG TABLET PO ONE (15:00)
[2018-06-19] MEDS ORDERED: SUMAtriptan SUCCINATE 50 MG TABLET ONE (15:39)
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
[2018-06-19 17:29] VITALS: BP 131/79; PULSE 72; TEMP 97.2
[2018-06-19] MEDS ORDERED: TOPIRAMATE 25 MG TABLET (FP) PO SCH (22:00)
[2018-06-19] MEDS ORDERED: ETODOLAC 400 MG PO SCH (22:00)
== END 2018-06-19 17:32 | disposition home or self-care (01) ==
LOC: JER 18:37 → JERBED 06-19 00:38
PROVIDERS: ADMIT Family Medicine; ATTEND Family Medicine
PROC: 3E033NZ Introduction of Analgesics, Hypnotics, Sedatives into Peripheral Vein, Percutaneous Approach (ICD-10-PCS; principal; 2018-06-19)
PROC: 3E0337Z Introduction of Electrolytic and Water Balance Substance into Peripheral Vein, Percutaneous Approach (ICD-10-PCS; 2018-06-19)
PROC: 3E033GC Introduction of Other Therapeutic Substance into Peripheral Vein, Percutaneous Approach (ICD-10-PCS; 2018-06-19)
PROC: 3E013GC Introduction of Other Therapeutic Substance into Subcutaneous Tissue, Percutaneous Approach (ICD-10-PCS; 2018-06-19)
DX: R55 Syncope and collapse (principal); S06.0X9D Concussion with loss of consciousness of unspecified duration, subsequent encounter; R11.2 Nausea with vomiting, unspecified; K52.9 Noninfective gastroenteritis and colitis, unspecified; G44.309 Post-traumatic headache, unspecified, not intractable; Y04.0XXD Assault by unarmed brawl or fight, subsequent encounter
CPT/HCPCS: 36415; 70450-TC; 70480-TC; 70486-TC; 71045-TC-FY; 80048; 80053; 80307; 81003; 83690; 83735; 84100; 84443; 84484; 84703; 85025; 85610; 86850; 86900; 86901; 93005; 93010; 96361; 96372; 96374; 96375; 96376; 99284-25; G0378; J0131; J7030

== ENCOUNTER 2018-09-26 01:04 | Emergency (ER) | payer OTHER ==
[2018-09-26 02:54] VITALS: BP 128/86; PULSE 75; TEMP 98.5; BMI 34.7
[2018-09-26] MEDS ORDERED: KETOROLAC TROMETHAMINE 60 MG/2 ML VIAL IM ONE (04:31)
[2018-09-26] MEDS ORDERED: KETOROLAC TROMETHAMINE 60 MG/2 ML VIAL ONE (04:40)
--- NOTE | 2018-09-26 04:41 | PDOC ---
Documentation entered by Latonia Thakur SCRIBE, acting as scribe for Mila Li DO. Mila Li DO: This documentation has been prepared by the Ofe gaspar Brenda, SCRIBE, under my direction and personally reviewed by me in its entirety. I confirm that the documentation accurately reflects all work , treatment, procedures, and medical decision making performed by me. Attending Attestation - Resident Resident Name: MarySosa - ED Attending Attestation I have performed the following: I have examined & evaluated the patient, The case was reviewed & discussed with the resident, I agree w/resident's findings & plan, Exceptions are as noted - HPI HPI: 09/26/18 04:36 The patient is a 23 year old female, with no significant PMH who presents to the emergency department with 3 weeks of left knee pain. Patient reports no known trauma. The patient denies chest pain, shortness of breath, headache and dizziness. Denies fever, chills, nausea, vomiting, diarrhea and constipation. Denies any other symptoms. Allergies: NKA Past surgical history: Not reported Social history: Smokes 2-4 cigarettes a day, drinks alcohol 1-2 times a week recreationally, denies other substance usage. PCP: Dr. Yuan - Physicial Exam PE: 09/26/18 03:50 Agree with resident's exam. - Medical Decision Making 09/26/18 04:40 23-year-old well-appearing female with 3 weeks of right knee pain X-ray NSAIDs for pain and outpatient orthopedic follow-up
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
== END 2018-09-26 05:19 | disposition home or self-care (01) ==
LOC: JER 01:04
PROC: 3E0233Z Introduction of Anti-inflammatory into Muscle, Percutaneous Approach (ICD-10-PCS; principal; 2018-09-26)
DX: M25.561 Pain in right knee (principal)
CPT/HCPCS: 73562-TC-RT-FY; 84703; 99281-25

== ENCOUNTER 2020-06-08 12:23 | Emergency (ER) | payer OTHER ==
[2020-06-08 12:53] VITALS: BP 121/51; PULSE 81; TEMP 98.6; BMI 37.2
== END 2020-06-08 14:23 | disposition home or self-care (01) ==
LOC: JERFT 12:23
DX: M70.22 Olecranon bursitis, left elbow (principal)
CPT/HCPCS: 73070-TC-LT-FY; 99283-25

== ENCOUNTER 2020-08-12 05:36 | Emergency (ER) | payer OTHER ==
[2020-08-12 05:48] VITALS: BP 111/78; PULSE 73; TEMP 98.2; BMI 35.4
[2020-08-12 07:48] LABS: INR 1.01 (0.83-1.09); PROTHROMBIN TIME (PATIENT) 12.2 SEC (9.7-13.0)
[2020-08-12 07:51] LABS: ACTIVATED PTT 30.5 SECONDS (25.2-36.5)
[2020-08-12 07:52] LABS: BASO % 0.7 % (0-2.0); EOS % 3.6 % (0-4.5); HEMATOCRIT 37.5 % (32.4-45.2); HEMOGLOBIN 12.6 GM/dL (10.7-15.3); LYMPH % 28.6 % (8-40); MCH 27.9 pg (25.7-33.7); MCHC 33.7 g/dl (32.0-36.0); MEAN CELL VOLUME 82.7 fl (80-96); MONO % 6.4 % (3.8-10.2); NEUT % 60.7 % (42.8-82.8); PLATELET COUNT 296 K/MM3 (134-434); RBC 4.53 M/mm3 (3.60-5.2); RDW 14.1 % (11.6-15.6); WHITE BLOOD COUNT 10.4 K/mm3 (4.0-10.0)
[2020-08-12 07:53] LABS: ALBUMIN 3.8 g/dl (3.4-5.0); ANION GAP 8 MMOL/L (8-16); BLOOD UREA NITROGEN 9.7 mg/dL (7-18); CALCIUM 8.9 mg/dL (8.5-10.1); CHLORIDE 106 mmol/L (98-107); CO2 26 mmol/L (21-32); GLUCOSE,RANDOM 94 mg/dL (74-106); SODIUM 140 mmol/L (136-145)
[2020-08-12 07:56] LABS: SGPT/ALT 29 U/L (13-61)
[2020-08-12 07:57] LABS: CREATININE 0.6 mg/dL (0.55-1.3); SGOT/AST 12 U/L (15-37)
[2020-08-12 07:58] LABS: BILIRUBIN,TOTAL 0.4 mg/dL (0.2-1); TOT PROT 6.8 g/dl (6.4-8.2)
[2020-08-12 07:59] LABS: ALK PHOS 64 U/L (45-117)
[2020-08-12 08:50] LABS: EPI CELLS 26 /uL (0-25.1); HYALINE CASTS 0 /uL (0-3.1); URINE APPEARANCE CLEAR; URINE BACTERIA 601 /uL (0-1359); URINE BILIRUBIN NEGATIVE (NEGATIVE); URINE COLOR YELLOW; URINE GLUCOSE (UA) NEGATIVE (NEGATIVE); URINE KETONE NEGATIVE (NEGATIVE); URINE LEUK ESTERASE TRACE (NEGATIVE); URINE NITRITE NEGATIVE (NEGATIVE); URINE PROTEIN NEGATIVE (NEGATIVE); URINE RBC 25 /uL (0-23.9); URINE UROBILINOGEN 0.2 mg/dL (0.2-1.0); URINE WBC 58 /uL (0-25.8)
== END 2020-08-12 08:50 | disposition home or self-care (01) ==
LOC: JER 05:36
DX: S06.0X0A Concussion without loss of consciousness, initial encounter (principal)
CPT/HCPCS: 36415; 70450-TC; 71046-TC-FY; 80053; 81003; 84484; 84703; 85025; 85610; 85730; 87077; 87086; 93005; 93010; 99285-25

== ENCOUNTER 2020-09-26 04:40 | Emergency (ER) | payer OTHER ==
[2020-09-26] MEDS ORDERED: ONDANSETRON *ODT* 4 MG TABLET SL ONE (05:24)
[2020-09-26] MEDS ORDERED: ACETAMINOPHEN 325 MG TABLET (FP) PO ONE (05:32)
[2020-09-26] MEDS ORDERED: ONDANSETRON *ODT* 4 MG TABLET ONE (05:34)
[2020-09-26] MEDS ORDERED: ACETAMINOPHEN 325 MG TABLET (FP) ONE (05:34)
[2020-09-26 05:48] VITALS: BP 142/80; PULSE 100; TEMP 100.1; BMI 35.4
[2020-09-26] MEDS ORDERED: PENICILLIN V POTASSIUM 500 MG TABLET PO ONE (06:38)
== END 2020-09-26 06:54 | disposition home or self-care (01) ==
LOC: JER 04:40
DX: J02.0 Streptococcal pharyngitis (principal)
CPT/HCPCS: 87880; 99284-25; C9803; Q0162; U0003; U0005

== ENCOUNTER 2021-03-30 20:39 | Emergency (ER) | payer OTHER ==
[2021-03-30 21:10] VITALS: BP 108/73; PULSE 86; TEMP 98.7; BMI 38.9
[2021-03-30 21:13] LABS: HEMATOCRIT 38.9 % (32.4-45.2); HEMOGLOBIN 12.7 GM/dL (10.7-15.3); MCH 26.5 pg (25.7-33.7); MCHC 32.6 g/dl (32.0-36.0); MEAN CELL VOLUME 81.3 fl (80-96); MEAN PLT VOLUME 7.3 fl (7.5-11.1); PLATELET COUNT 298 10^3/uL (134-434); RBC 4.78 M/mm3 (3.60-5.2); RDW 14.1 % (11.6-15.6); WHITE BLOOD COUNT 12.7 K/mm3 (4.0-10.0)
[2021-03-30 21:30] LABS: CHLORIDE 106 mmol/L (98-107); SODIUM 140 mmol/L (136-145)
[2021-03-30 21:33] LABS: ALBUMIN 3.9 g/dl (3.4-5.0); ANION GAP 7 MMOL/L (8-16); BLOOD UREA NITROGEN 10.4 mg/dL (7-18); CALCIUM 9.3 mg/dL (8.5-10.1); CO2 27 mmol/L (21-32); GLUCOSE,RANDOM 81 mg/dL (74-106)
[2021-03-30 21:36] LABS: CREATININE 0.7 mg/dL (0.55-1.3); SGOT/AST 11 U/L (15-37); SGPT/ALT 33 U/L (13-61)
[2021-03-30 21:38] LABS: BILIRUBIN,TOTAL 0.7 mg/dL (0.2-1); TOT PROT 7.1 g/dl (6.4-8.2)
[2021-03-30 21:39] LABS: ALK PHOS 76 U/L (45-117)
== END 2021-03-30 23:06 | disposition home or self-care (01) ==
LOC: JER 20:39 → JERFT 20:39
DX: R07.89 Other chest pain (principal)
CPT/HCPCS: 36415; 71275-TC; 80053; 84484; 84703; 85027; 93005; 93010; 99285-25; Q9967

== ENCOUNTER 2023-01-21 16:14 | Emergency (ER) | payer OTHER ==
[2023-01-21 16:31] VITALS: BP 136/88; RESP 18; BMI 85.9
[2023-01-21] MEDS ORDERED: AMOX TR/POT CLAV 875MG/125MG TABLETS (FP) PO ONE (17:13)
[2023-01-21] MEDS ORDERED: LIDOCAINE 4% PATCH TP ONE ×2 (17:13→17:15)
[2023-01-21] MEDS ORDERED: ACETAMINOPHEN 500 MG TABLET (FP) PO ONE (17:13)
[2023-01-21] MEDS ORDERED: AMOX TR/POT CLAV 875MG/125MG TABLETS (FP) ONE (17:15)
[2023-01-21] MEDS ORDERED: ACETAMINOPHEN 500 MG TABLET (FP) ONE (17:16)
[2023-01-21 17:30] VITALS: PULSE 82; TEMP 98.4
== END 2023-01-21 17:36 | disposition home or self-care (01) ==
LOC: JER 16:14 → JERFT 16:14
DX: M54.9 Dorsalgia, unspecified (principal); R05.9 Cough, unspecified; R09.81 Nasal congestion; J01.90 Acute sinusitis, unspecified; V89.2XXA Person injured in unspecified motor-vehicle accident, traffic, initial encounter; Y93.I9 Activity, other involving external motion
CPT/HCPCS: 71046-TC-FY; 99283-25

== ENCOUNTER 2023-08-02 10:46 | Emergency (ER) | payer OTHER ==
[2023-08-02 11:12] VITALS: PULSE 78; RESP 17; TEMP 98.7; BMI 42.5
[2023-08-02] MEDS ORDERED: ONDANSETRON 4 MG/2 ML VIAL ONE (12:03)
[2023-08-02] MEDS ORDERED: PANTOPRAZOLE SODIUM 40 MG VIAL ONE (12:04)
[2023-08-02] MEDS ORDERED: FAMOTIDINE 20 MG/50 ML IVPB 20 MG/50 ML MG IVPB ONE (12:04)
[2023-08-02] MEDS: SODIUM CHLORIDE 0.9% 500 ML INFUS.BAG IV ONE (12:15)
[2023-08-02] MEDS: PANTOPRAZOLE SODIUM 40 MG VIAL IVPUSH ONE (12:16)
[2023-08-02] MEDS: FAMOTIDINE 20 MG/50 ML IVPB 20 MG/50 ML MG IVPB ONE (12:16)
[2023-08-02] MEDS: ONDANSETRON 4 MG/2 ML VIAL IVPUSH ONE (12:16)
[2023-08-02 12:17] LABS: BASO % 0.7 % (0-2.0); EOS % 2.5 % (0-4.5); HEMATOCRIT 35.1 % (32.4-45.2); LYMPH % 26.3 % (8-40); MCH 26.9 pg (25.7-33.7); MCHC 34.2 g/dl (32.0-36.0); MEAN CELL VOLUME 78.4 fl (80-96); MEAN PLT VOLUME 7.8 fl (7.5-11.1); MONO % 5.6 % (3.8-10.2); NEUT % 64.9 % (42.8-82.8); PLATELET COUNT 299 10^3/uL (134-434); RBC 4.48 M/mm3 (3.60-5.2); RDW 14.7 % (11.6-15.6); WHITE BLOOD COUNT 9.2 K/mm3 (4.0-10.0)
[2023-08-02 12:42] LABS: BILIRUBIN,TOTAL 0.3 mg/dL (0.2-1)
[2023-08-02 13:01] LABS: POTASSIUM 4.1 mmol/L (3.5-5.1)
[2023-08-02 13:10] LABS: CALCIUM 8.7 mg/dL (8.5-10.1)
[2023-08-02 13:11] LABS: ALBUMIN 3.3 g/dl (3.4-5.0); BLOOD UREA NITROGEN 11.7 mg/dL (7-18); MAGNESIUM 1.8 mg/dL (1.8-2.4)
[2023-08-02 13:13] LABS: CREATININE 0.7 mg/dL (0.55-1.3)
[2023-08-02 13:15] LABS: TOT PROT 6.4 g/dl (6.4-8.2)
[2023-08-02 15:02] VITALS: BP 117/79
== END 2023-08-02 14:50 | disposition home or self-care (01) ==
LOC: JER 10:46
PROC: 3E03329 Introduction of Other Anti-infective into Peripheral Vein, Percutaneous Approach (ICD-10-PCS; principal; 2023-08-02)
PROC: 3E030GC Introduction of Other Therapeutic Substance into Peripheral Vein, Open Approach (ICD-10-PCS; 2023-08-02)
PROC: 3E030GC Introduction of Other Therapeutic Substance into Peripheral Vein, Open Approach (ICD-10-PCS; 2023-08-02)
DX: K92.0 Hematemesis (principal); R10.9 Unspecified abdominal pain
CPT/HCPCS: 36415; 71046-TC-FY; 80053; 82272; 83690; 83735; 84703; 85025; 99284-25

== ENCOUNTER 2023-10-29 10:53 | Emergency (ER) | payer OTHER ==
[2023-10-29 11:01] VITALS: BP 116/78; PULSE 85; RESP 20; TEMP 98.4; BMI 42.5
== END 2023-10-29 12:16 | disposition home or self-care (01) ==
LOC: JERFT 10:53
DX: M54.50 Low back pain, unspecified (principal); M54.6 Pain in thoracic spine; V43.53XA Car driver injured in collision with pick-up truck in traffic accident, initial encounter; Y92.410 Unspecified street and highway as the place of occurrence of the external cause
CPT/HCPCS: 99283-25

== ENCOUNTER 2024-06-17 01:16 | Emergency (ER) | payer OTHER ==
[2024-06-17 01:32] VITALS: BP 113/80; PULSE 113; RESP 20; TEMP 98.4; BMI 44.2
[2024-06-17] MEDS ORDERED: DIPHTH,PERTUSS(ACELL),TET 0.5 ML DISP.SYRIN IM ONE (01:52)
[2024-06-17] MEDS: DIPHTH,PERTUSS(ACELL),TET 0.5 ML DISP.SYRIN IM ONE (01:54)
== END 2024-06-17 01:55 | disposition home or self-care (01) ==
LOC: JER 01:16
PROC: 3E0234Z Introduction of Serum, Toxoid and Vaccine into Muscle, Percutaneous Approach (ICD-10-PCS; principal; 2024-06-17)
DX: S60.312A Abrasion of left thumb, initial encounter (principal); Z23 Encounter for immunization; W26.8XXA Contact with other sharp object(s), not elsewhere classified, initial encounter
CPT/HCPCS: 90471; 90715; 99284-25